=== PATIENT | male | born 1955 | race Caucasian/White ===

== ENCOUNTER 2018-03-03 10:42 | Day surgery (SDC) | payer BC ==
[~2018-03-03 10:42] MED LIST: Metoclopramide 10 MG/2 ML SDV IV PRN; Sodium Chloride 0.9% 1,000 ML IV SCH; Sodium Chloride 0.9% 10 ML Syringe FLUSH PRN
[2018-03-03] MEDS ORDERED: Propofol 1,000 MG/100 ML SDV ONE (15:05)
[2018-03-03] MEDS ORDERED: Midazolam 1 MG/ML 5 ML SDV ONE (15:05)
--- NOTE | 2018-03-03 18:56 | OR ---
DATE OF OPERATION: 03/03/2018 PREOPERATIVE DIAGNOSIS: History of colon polyps. POSTOPERATIVE DIAGNOSIS: History of colon polyps. PROCEDURE: Colonoscopy. ANESTHESIA: MAC. ESTIMATED BLOOD LOSS: None. COMPLICATIONS: None. INDICATION FOR THE PROCEDURE: The patient is a 63-year-old male, who has had previous history of colorectal polyps. The last colonoscopy was 5 years ago, was found to have several polyps on that one. The patient denies any change in bowel habits since that time. DESCRIPTION OF PROCEDURE: Informed consent was obtained from the patient. The patient was taken to the operating room, placed on table in left lateral decubitus position. Monitored anesthesia care was administered. Digital rectal exam was normal. Colonoscope was then advanced through the anus and directed toward the cecum utilizing abdominal pressure cecum was reached, identified by ileocecal valve and appendiceal orifice. Colonoscope was then slowly withdrawn. No masses. No polyps. No areas of inflammation or ischemia. The patient did have a few small diverticula in the sigmoid colon. Retroflexion was performed in the rectum and found have hypertrophied anal papillae. Otherwise, normal rectum. Colonoscope was then withdrawn. The patient tolerated procedure well and was brought to recovery room in good condition. FINDINGS: Sigmoid diverticula and hypertrophied anal papillae. RECOMMENDATIONS: Would recommend repeat colonoscopy in 5 years due to personal history of polyps. If he does have any symptoms of perianal discomfort from the patellae, may be seen for surgical excision at a later date. EUGENIO /[id number]
== END 2018-03-03 16:25 | disposition home or self-care (01) ==
LOC: LB.SDS 10:42
PROVIDERS: ATTEND Surgery
DX: Z12.11 Encounter for screening for malignant neoplasm of colon (principal); K57.30 Diverticulosis of large intestine without perforation or abscess without bleeding; K64.4 Residual hemorrhoidal skin tags; Z86.010 Personal history of colon polyps
CPT/HCPCS: 45378; J2250; J7040; J3490; J7030